=== PATIENT | male | born 1985 | race Caucasian/White ===

== ENCOUNTER 2023-05-04 23:10 | Emergency (ER) | payer OTHER ==
--- NOTE | 2023-05-04 23:27 | ED ---
Syncope HPI - General Stated Complaint: Syncope Time Seen by Provider: 05/04/23 23:13 Source: patient Limitations: no limitations - History of Present Illness Initial Comments: This patient is a 38-year-old man who presents for evaluation after having passed out twice today. The patient first episode occurred in the morning, he had just gotten up and then he passed out. The patient did have a similar episode later in the day, but this occurred while using the bathroom. The patient did fall and injured his tongue. The review of systems is negative other than patient complaining of having an abscess on the buttock at the gluteal cleft. Patient denies systemic symptoms related to that. MD Complaint: loss of consciousness -: hour(s) Prodromal Symptoms: none Witnessed: yes - by bystander Injuries Sustained Associated with Event: Mouth/Tongue Current Symptoms: headache Treatments Prior to Arrival: IV fluids - Related Data Previous Rx's Medication Instructions Recorded Cephalexin [Keflex] 500 mg PO Q6HR #28 cap 05/05/23 Allergies Allergy/AdvReac Type Severity Reaction Status Date / Time Sulfa (Sulfonamide AdvReac Unknown Verified 05/04/23 23:28 Antibiotics) Review of Systems ROS Statement: Those systems with pertinent positive or pertinent negative responses have been documented in the HPI. ROS Other: All systems not noted in ROS Statement are negative. Constitutional: Denies: fever, chills, weakness Eyes: Denies: vision change Respiratory: Denies: cough, dyspnea, wheezes Cardiovascular: Reports: syncope. Denies: chest pain, palpitations, dyspnea on exertion, edema Gastrointestinal: Denies: abdominal pain, nausea, vomiting, diarrhea Genitourinary: Denies: dysuria, hematuria, testicular pain Musculoskeletal: Denies: back pain Skin: Reports: as per HPI, lesions. Denies: rash Neurological: Denies: headache, weakness General Exam General appearance: alert, in no apparent distress Head exam: Present: atraumatic, normocephalic Eye exam: Present: normal appearance. Absent: scleral icterus, conjunctival injection Neck exam: Present: normal inspection, full ROM Respiratory exam: Present: normal lung sounds bilaterally. Absent: respiratory distress, wheezes, rales, rhonchi, stridor Cardiovascular Exam: Present: regular rate, normal rhythm, normal heart sounds. Absent: systolic murmur, diastolic murmur, rubs, gallop GI/Abdominal exam: Present: soft. Absent: distended, tenderness, guarding, rebound, rigid, mass Extremities exam: Present: normal inspection, normal capillary refill. Absent: pedal edema, calf tenderness Back exam: Present: normal inspection. Absent: CVA tenderness (R), CVA tenderness (L) Neurological exam: Present: alert, oriented X3, CN II-XII intact. Absent: motor sensory deficit Skin exam: Present: warm, dry, intact, normal color, other (Patient does have approximately 2.5 cm diameter abscess which does come to a point just to the right of gluteal cleft. There has been drainage.). Absent: rash Course Vital Signs 05/04/23 05/05/23 23:17 01:02 Temperature 100.3 F H Pulse Rate 70 86 Respiratory 18 22 Rate Blood Pressure 146/77 169/95 O2 Sat by Pulse 98 98 Oximetry EKG Findings - EKG Results: EKG: interpreted by ASHLEIGH, sinus rhythm (Rate 60 bpm), normal axis, normal QRS, normal ST/T, no acute changes Procedures - Incision & Drainage Consent Obtained: verbal consent Site: buttock Anesthetic Used: lidocaine 1% I&D Cleaning Method: Betadine Sterile Field Used?: Yes Scalpel Used: #11 I&D Drainage Obtained: Pus Packing: Iodoform Patient Tolerated Procedure: well, no complications Medical Decision Making - Medical Decision Making Patient is 38-year-old man here to have evaluation after having had 2 syncopal episodes. The patient did have evaluation at [facility] prior to his evaluation here. The review of systems does reveal that there is a gluteal cleft abscess. I did perform I&D of this, please see the note. The patient at this point does appear to have viral syndrome, having low-grade fever and other symptoms but no definite focus of bacterial infection. The abscess does not appear to be causing systemic symptoms. At this point patient appears stable to have discharge and close follow-up as outpatient. We discussed appropriate further care and follow-up as well as return parameters also further management of the abscess and packing. The patient had chest x-ray which I interpreted as negative for acute infiltrate, congestive heart failure, pneumothorax Was pt. sent in by a medical professional or institution (, PA, WALL TAPER HELPER, urgent care, hospital, or halfway...) When possible be specific @ -No Did you speak to anyone other than the patient for history (EMS, parent, family, police, friend...)? What history was obtained from this source @ -[Patient's partner did give some history Did you review nursing and triage notes (agree or disagree)? Why? @ -[I reviewed and agree with nursing and triage notes] Were old charts reviewed (outside hosp., previous admission, EMS record, old EKG, old radiological studies, urgent care reports/EKG's, halfway records)? Report findings @ -[No old charts were reviewed] Differential Diagnosis (chest pain, altered mental status, abdominal pain women, abdominal pain men, vaginal bleeding, weakness, fever, dyspnea, syncope, headache, dizziness, GI bleed, back pain, seizure, CVA, palpatations, mental health, musculoskeletal)? @ -[Differential Syncope: Valvular disease, hypertrophic cardiomyopathy, pulmonary embolism, tamponade, t achycardia, bradycardia, PR, hypovolemia, hemorrhage, dissection, anemia, intracranial hemorrhage, seizure, hypoglycemia, carbon monoxide poisoning, this is not meant to be an all-inclusive list. EKG interpreted by me (3pts min.). @ -[I interpreted as above] X-rays interpreted by me (1pt min.). @ -[I interpreted as above CT interpreted by me (1pt min.). @ -[None done] U/S interpreted by me (1pt. min.). @ -[None done] What testing was considered but not performed or refused? (CT, X-rays, U/S, labs)? Why? @ -[None] What meds were considered but not given or refused? Why? @ -[None] Did you discuss the management of the patient with other professionals (professionals i.e. , PA, WALL TAPER HELPER, lab, RT, psych nurse, social service liaison, or assistant, teacher, tactical response group officer, human services case manager)? Give summary @ -[No] Was smoking cessation discussed for >3mins.? @ -[No] Was critical care preformed (if so, how long)? @ -[No] Were there social determinants of health that impacted care today? How? (Homelessness, low income, unemployed, alcoholism, drug addiction, transportation, low edu. Level, literacy, decrease access to med. care, half-way, rehab)? @ -[No] Was there de-escalation of care discussed even if they declined (Discuss DNR or withdrawal of care, Hospice)? DNR status @ -[No] What co-morbidities impacted this encounter? (DM, HTN, Smoking, COPD, CAD, Cancer, CVA, ARF, Chemo, Hep., AIDS, mental health diagnosis, sleep apnea, morbid obesity)? @ -[None] Was patient admitted / discharged? Hospital course, mention meds given and route, prescriptions, significant lab abnormalities, going to OR and other pertinent info. @ -[See above Undiagnosed new problem with uncertain prognosis? @ -[No] Drug Therapy requiring intensive monitoring for toxicity (Heparin, Nitro, Insulin, Cardizem)? @ -[No] Were any procedures done? @ -[Incision and drainage of abscess, see the note Diagnosis/symptom? @ -[Acute syncopal episode Abscess to buttock at gluteal cleft Suspected viral syndrome Acute, or Chronic, or Acute on Chronic? @ -[Acute Uncomplicated (without systemic symptoms) or Complicated (systemic symptoms)? @ -[Uncomplicated Side effects of treatment? @ -[No] Exacerbation, Progression, or Severe Exacerbation? @ -[No] Poses a threat to life or bodily function? How? (Chest pain, USA, PR, pneumonia, PE, COPD, DKA, ARF, appy, cholecystitis, CVA, Diverticulitis, Homicidal, Suicidal, threat to staff... and all critical care pts) @ -[No] - Lab Data Result diagrams: 05/04/23 23:39 05/04/23 23:39 Lab Results 05/04/23 05/04/23 05/04/23 Range/Units 23:39 23:39 23:39 WBC 19.2 H (3.8-10.6) k/uL RBC 4.28 L (4.30-5.90) m/uL Hgb 13.1 (13.0-17.5) gm/dL Hct 39.4 (39.0-53.0) % MCV 91.9 (80.0-100.0) fL MCH 30.7 (25.0-35.0) pg MCHC 33.4 (31.0-37.0) g/dL RDW 12.5 (11.5-15.5) % Plt Count 268 (150-450) k/uL MPV 8.4 Neutrophils % 87 % Lymphocytes % 6 % Monocytes % 6 % Eosinophils % 0 % Basophils % 0 % Neutrophils # 16.7 H (1.3-7.7) k/uL Lymphocytes # 1.1 (1.0-4.8) k/uL Monocytes # 1.2 H (0-1.0) k/uL Eosinophils # 0.0 (0-0.7) k/uL Basophils # 0.0 (0-0.2) k/uL PT 11.1 (10.0-12.5) sec INR 1.0 (<1.2) APTT 22.7 (22.0-30.0) sec D-Dimer 0.60 H (<0.60) mg/L FEU Sodium 136 L (137-145) mmol/L Potassium 4.5 (3.5-5.1) mmol/L Chloride 108 H (98-107) mmol/L Carbon Dioxide 22 (22-30) mmol/L Anion Gap 6 mmol/L BUN 17 (9-20) mg/dL Creatinine 0.99 (0.66-1.25) mg/dL Est GFR (CKD-EPI)AfAm >90 (>60 ml/min/1.73 sqM) Est GFR (CKD-EPI)NonAf >90 (>60 ml/min/1.73 sqM) Glucose 127 H (74-99) mg/dL Calcium 9.2 (8.4-10.2) mg/dL Total Bilirubin 0.8 (0.2-1.3) mg/dL AST 28 (17-59) U/L ALT 20 (4-49) U/L Alkaline Phosphatase 42 (38-126) U/L Troponin I (0.000-0.034) ng/mL Total Protein 7.0 (6.3-8.2) g/dL Albumin 4.1 (3.5-5.0) g/dL Serum Alcohol <10 mg/dL Influenza Type A (PCR) (Not Detectd) Influenza Type B (PCR) (Not Detectd) RSV (PCR) (Not Detectd) SARS-CoV-2 (PCR) (Not Detectd) 05/04/23 05/05/23 Range/Units 23:39 01:02 WBC (3.8-10.6) k/uL RBC (4.30-5.90) m/uL Hgb (13.0-17.5) gm/dL Hct (39.0-53.0) % MCV (80.0-100.0) fL MCH (25.0-35.0) pg MCHC (31.0-37.0) g/dL RDW (11.5-15.5) % Plt Count (150-450) k/uL MPV Neutrophils % % Lymphocytes % % Monocytes % % Eosinophils % % Basophils % % Neutrophils # (1.3-7.7) k/uL Lymphocytes # (1.0-4.8) k/uL Monocytes # (0-1.0) k/uL Eosinophils # (0-0.7) k/uL Basophils # (0-0.2) k/uL PT (10.0-12.5) sec INR (<1.2) APTT (22.0-30.0) sec D-Dimer (<0.60) mg/L FEU Sodium (137-145) mmol/L Potassium (3.5-5.1) mmol/L Chloride (98-107) mmol/L Carbon Dioxide (22-30) mmol/L Anion Gap mmol/L BUN (9-20) mg/dL Creatinine (0.66-1.25) mg/dL Est GFR (CKD-EPI)AfAm (>60 ml/min/1.73 sqM) Est GFR (CKD-EPI)NonAf (>60 ml/min/1.73 sqM) Glucose (74-99) mg/dL Calcium (8.4-10.2) mg/dL Total Bilirubin (0.2-1.3) mg/dL AST (17-59) U/L ALT (4-49) U/L Alkaline Phosphatase (38-126) U/L Troponin I 0.020 (0.000-0.034) ng/mL Total Protein (6.3-8.2) g/dL Albumin (3.5-5.0) g/dL Serum Alcohol mg/dL Influenza Type A (PCR) Not Detected (Not Detectd) Influenza Type B (PCR) Not Detected (Not Detectd) RSV (PCR) Not Detected (Not Detectd) SARS-CoV-2 (PCR) Not Detected (Not Detectd) Disposition Clinical Impression: Syncope, Abscess and cellulitis of gluteal region Disposition: HOME SELF-CARE Condition: Good Instructions (If sedation given, give patient instructions): Abscess Incision and Drainage (ED), Syncope (ED) Prescriptions: Cephalexin [Keflex] 500 mg PO Q6HR #28 cap Is patient prescribed a controlled substance at d/c from ED?: No Referrals: None,Stated [Primary Care Provider] - 1-2 days
[2023-05-04 23:48] LABS: Basophils % (A) 0 %; Eosinophils % (A) 0 %; HCT 39.4 % (39.0-53.0); HGB 13.1 gm/dL (13.0-17.5); Lymphocytes # (A) 1.1 k/uL (1.0-4.8); Lymphocytes % (A) 6 %; MCH 30.7 pg (25.0-35.0); MCHC 33.4 g/dL (31.0-37.0); MCV 91.9 fL (80.0-100.0); Mean Platelet Volume 8.4; Monocytes # (A) 1.2 k/uL (0-1.0); Monocytes % (A) 6 %; Neutrophils # (A) 16.7 k/uL (1.3-7.7); Neutrophils % (A) 87 %; Platelet Count 268 k/uL (150-450); RBC 4.28 m/uL (4.30-5.90); RDW 12.5 % (11.5-15.5); WBC 19.2 k/uL (3.8-10.6)
[2023-05-04 23:53] VITALS: TEMP 100.3
--- NOTE | 2023-05-04 23:55 | XR ---
EXAM: XR Chest, 2 Views CLINICAL HISTORY: ITS.REASON XR Reason: syncope TECHNIQUE: Frontal and lateral views of the chest. COMPARISON: No relevant prior studies available. FINDINGS: Lungs: Unremarkable. No consolidation. Pleural space: Unremarkable. No pneumothorax. Heart: Unremarkable. No cardiomegaly. Mediastinum: Unremarkable. Normal mediastinal contour. Bones/joints: Unremarkable. No acute fracture. IMPRESSION: Normal chest x-rays.
[2023-05-05 00:17] LABS: Partial Thromboplastin Time 22.7 sec (22.0-30.0); Prothrombin Time 11.1 sec (10.0-12.5)
[2023-05-05 00:43] LABS: ALT 20 U/L (4-49); AST 28 U/L (17-59); African American GFR (CKD) >90 (>60 ml/min/1.73 sqM); Albumin 4.1 g/dL (3.5-5.0); Alcohol <10 mg/dL; Alkaline Phosphatase 42 U/L (38-126); Anion Gap 6 mmol/L; Blood Urea Nitrogen 17 mg/dL (9-20); Calcium 9.2 mg/dL (8.4-10.2); Carbon Dioxide 22 mmol/L (22-30); Chloride 108 mmol/L (98-107); Glucose 127 mg/dL (74-99); Non-African American GFR(CKD) >90 (>60 ml/min/1.73 sqM); Potassium 4.5 mmol/L (3.5-5.1); Sodium 136 mmol/L (137-145); Total Bilirubin 0.8 mg/dL (0.2-1.3)
[2023-05-05 01:22] VITALS: BP 169/95; PULSE 86; RESP 22
== END 2023-05-05 03:04 | disposition home or self-care (01) ==
LOC: EC 23:10
DX: L02.31 Cutaneous abscess of buttock (principal); L03.317 Cellulitis of buttock; R55 Syncope and collapse; Z88.2 Allergy status to sulfonamides; Z20.822 Contact with and (suspected) exposure to COVID-19
CPT/HCPCS: 10060; 36415; 71046; 80053; 80320; 84484; 85025; 85379; 85610; 85730; 87636; 93005; 99285